=== PATIENT | female | born 1935 | race African-American/Black ===

== ENCOUNTER 2017-09-07 13:20 | Inpatient (IN) | payer OTHER ==
[~2017-09-07] VITALS: Ht 152.4 cm; Wt 73.9 kg
[2017-09-07] MEDS ORDERED: SODIUM CHLORIDE 0.9% 500 ML IV ONE ×2 (13:27→18:30)
[2017-09-07 14:47] LABS: Basophils # (auto) 0 uL; Basophils % (auto) 0.1 % (0.0-2.0); Eosinophils # (auto) 0.1 uL; Eosinophils % (auto) 0.8 % (0.0-7.0); Hematocrit 28.5 % (36.0-46.0); Hemoglobin 9.4 g/dL (12.2-16.2); Lymphocytes # (auto) 0.7 uL; Lymphocytes % (auto) 6.9 % (10.0-50.0); Mean Corpuscular Hemoglobin 31.3 pg (28.0-32.0); Mean Corpuscular Hgb Conc. 32.8 g/dL (32.0-36.0); Mean Corpuscular Volume 95.4 fL (80.0-100.0); Monocytes # (auto) 1.4 uL; Monocytes % (auto) 13.4 % (0.0-12.0); Neutrophils # (auto) 8.5 uL; Neutrophils % (auto) 78.8 % (37.0-80.0); Nucleated Red Blood Cells % 0.1 %; Platelet Count (auto) 267 10^3/uL (140-450); Red Blood Cells 2.99 10^6/uL (4.0-5.20); Red Cell Distribution Width 14.5 % (11.8-14.3); White Blood Cell 10.8 10^3/uL (4.4-10.8)
[2017-09-07 14:55] LABS: Urine Bacteria FEW /hpf (None Seen); Urine Blood Negative /uL (Negative); Urine Specific Gravity 1.015 (1.001-1.035); Urine WBC 5 /hpf (0 - 5)
[2017-09-07 15:03] LABS: Albumin 3.1 g/dL (3.4-5.0); BUN/Creatinine Ratio 27.5; Calcium 9.4 mg/dL (8.5-10.1); Magnesium 1.9 mg/dL (1.6-2.6); Potassium 4.3 mmol/L (3.5-5.1)
[2017-09-07 15:08] LABS: Bilirubin, Total 0.4 mg/dL (0.2-1.0); Total Protein 7.4 g/dL (6.4-8.2)
[2017-09-07 15:09] LABS: INR 0.93 (0.9-1.15); Partial Thromboplastin Time 22.2 sec (23.78-33.04)
[2017-09-07] MEDS ORDERED: NITROGLYCERIN 0.4 MG SL TAB SL PRN (15:45)
[2017-09-07] MEDS ORDERED: HYDROcodone-ACET 5/325MG TAB PO PRN (15:45)
[2017-09-07] MEDS ORDERED: cefTRIAXone 1GM/10ml IVPUSH 10 ML IV ONE (15:45)
[2017-09-07] MEDS ORDERED: PROMETHAZINE HCL 25 MG/ML 1ML IV PRN (15:45)
[2017-09-07] MEDS ORDERED: MORPHINE SULFATE 8mg/ml INJ SDV IV PRN ×2 (15:45)
[2017-09-07] MEDS ORDERED: TEMAZEPAM 15 MG CAP PO PRN (15:45)
[2017-09-07] MEDS ORDERED: LACTULOSE 20Gm/30ML SOLN PO PRN (15:45)
[2017-09-07] MEDS ORDERED: LORazepam 0.5 MG TAB PO PRN (15:45)
[2017-09-07] MEDS ORDERED: ENOXAPARIN SOD 30 MG/0.3 ML SYRINGE SC SCH (17:21)
[2017-09-07] MEDS ORDERED: POTASSIUM CHL 20 Meq TABLET PO ONE ×3 (17:30→20:00)
[2017-09-07] MEDS ORDERED: FUROSEMIDE 40 MG/4 ML VIAL IV ONE (17:30)
[2017-09-07] MEDS ORDERED: ASPirin 81 mg TAB PO ONE (17:30)
[2017-09-07] MEDS ORDERED: ENOXAPARIN SOD 60 MG/0.6 ML SYRINGE SC ONE (18:30)
[2017-09-07] MEDS ORDERED: ENOXAPARIN SOD 30 MG/0.3 ML SYRINGE SC ONE (19:45)
[2017-09-07 20:44] VITALS: BP 140/85
[2017-09-07] MEDS: SODIUM CHLORIDE 0.9% 1,000 ML IV SCH (20:44)
[2017-09-07] MEDS ORDERED: ENOXAPARIN SOD 60 MG/0.6 ML SYRINGE SC SCH (22:00)
[2017-09-07 22:16] VITALS: BP 148/85
[2017-09-07] MEDS: CARVEDILOL 3.125 MG TAB PO SCH (22:23)
[2017-09-07] MEDS: SODIUM CHLOR 0.9% PF (SALINE LOCK) 10ML VIAL/SYR IV SCH (22:24)
[2017-09-07 23:56] VITALS: BP 135/54
[2017-09-08] VITALS (10 sets, daily range): BP systolic 87–121; BP diastolic 48–83
[2017-09-08] MEDS: SODIUM CHLOR 0.9% PF (SALINE LOCK) 10ML VIAL/SYR IV SCH ×4 (05:39→22:08)
[2017-09-08 06:00] LABS: Basophils # (auto) 0.1 uL; Basophils % (auto) 0.6 % (0.0-2.0); Eosinophils # (auto) 0 uL; Eosinophils % (auto) 0.3 % (0.0-7.0); Hematocrit 28.9 % (36.0-46.0); Hemoglobin 9.3 g/dL (12.2-16.2); Lymphocytes # (auto) 1.1 uL; Lymphocytes % (auto) 7.3 % (10.0-50.0); Mean Corpuscular Hemoglobin 30.6 pg (28.0-32.0); Mean Corpuscular Hgb Conc. 32.2 g/dL (32.0-36.0); Monocytes # (auto) 1.7 uL; Monocytes % (auto) 11.5 % (0.0-12.0); Neutrophils # (auto) 12.1 uL; Neutrophils % (auto) 80.3 % (37.0-80.0); Nucleated Red Blood Cells % 0.1 %; Platelet Count (auto) 285 10^3/uL (140-450); Red Blood Cells 3.04 10^6/uL (4.0-5.20); Red Cell Distribution Width 14.8 % (11.8-14.3); White Blood Cell 15.1 10^3/uL (4.4-10.8)
[2017-09-08 06:42] LABS: Albumin 2.9 g/dL (3.4-5.0); BUN/Creatinine Ratio 24.7; Bilirubin, Total 0.5 mg/dL (0.2-1.0); Calcium 7.8 mg/dL (8.5-10.1); Potassium 4.4 mmol/L (3.5-5.1); Total Protein 7.2 g/dL (6.4-8.2)
[2017-09-08] MEDS ORDERED: FUROSEMIDE 40 MG/4 ML VIAL IV SCH (10:00)
[2017-09-08] MEDS ORDERED: POTASSIUM CHL 20 Meq TABLET PO SCH (10:00)
[2017-09-08] MEDS: PANTOPRAZOLE 40 MG TAB PO SCH (10:00)
[2017-09-08] MEDS: cefTRIAXone 1GM/10ml IVPUSH 10 ML IV SCH (10:23)
[2017-09-08] MEDS: ASPirin 81 mg TAB PO SCH (10:33)
[2017-09-08] MEDS: CARVEDILOL 3.125 MG TAB PO SCH ×2 (10:34→22:00)
[2017-09-08] MEDS: SODIUM CHLORIDE 0.9% 1,000 ML IV SCH (10:37)
[2017-09-08] MEDS: ENOXAPARIN SOD 60 MG/0.6 ML SYRINGE SC SCH (10:40)
[2017-09-08] MEDS ORDERED: SODIUM CHLORIDE 0.9% 1,000 ML IV SCH (14:45)
[2017-09-08] MEDS: LORazepam 0.5 MG TAB PO PRN (19:52)
[2017-09-08] MEDS ORDERED: SUCCINYLCHOLINE CHLORIDE 20 MG/ML 10ML VIAL IV ONE (21:02)
[2017-09-08] MEDS ORDERED: ETOMIDATE (2MG/ML) 20ML VIAL IV ONE (21:03)
[2017-09-08] MEDS ORDERED: MIDAZOLAM DRIP 50 mg/50mL 50 ML IV ONE (21:23)
[2017-09-08] MEDS: MIDAZOLAM DRIP 50 mg/50mL 50 ML IV SCH ×2 (22:07→22:10)
[2017-09-08] MEDS ORDERED: D5W/SOD CHL 0.45% 1,000 ML IV ONE (22:15)
[2017-09-09] VITALS (100 sets, daily range): BP systolic 66–153; BP diastolic 33–82
[2017-09-09 04:10] LABS: Basophils # (auto) 0 uL; Eosinophils # (auto) 0.3 uL; Hemoglobin 7.4 g/dL (12.2-16.2); Monocytes # (auto) 0.6 uL
[2017-09-09 04:12] LABS: Basophils % (auto) 0.2 % (0.0-2.0); Eosinophils % (auto) 3.2 % (0.0-7.0); Lymphocytes # (auto) 0.6 uL; Mean Corpuscular Hemoglobin 32.3 pg (28.0-32.0); Mean Corpuscular Hgb Conc. 33.6 g/dL (32.0-36.0); Mean Corpuscular Volume 96.3 fL (80.0-100.0); Monocytes % (auto) 5.7 % (0.0-12.0); Neutrophils # (auto) 8.6 uL; Neutrophils % (auto) 84.9 % (37.0-80.0); Nucleated Red Blood Cells % 0.3 %; Platelet Count (auto) 180 10^3/uL (140-450); Red Blood Cells 2.28 10^6/uL (4.0-5.20); Red Cell Distribution Width 15.2 % (11.8-14.3); White Blood Cell 10.1 10^3/uL (4.4-10.8)
[2017-09-09 04:23] LABS: INR 0.93 (0.9-1.15); Partial Thromboplastin Time 21.9 sec (23.78-33.04)
[2017-09-09 04:27] LABS: Calcium 8.3 mg/dL (8.5-10.1); Magnesium 1.8 mg/dL (1.6-2.6); Potassium 3.7 mmol/L (3.5-5.1)
[2017-09-09 04:29] LABS: BUN/Creatinine Ratio 25.3
[2017-09-09] MEDS: MIDAZOLAM DRIP 50 mg/50mL 50 ML IV SCH ×3 (05:22→21:00)
[2017-09-09] MEDS ORDERED: NOREPINEPHRINE 8 MG/250ML KIT 250 ML IV SCH (08:43)
[2017-09-09] MEDS ORDERED: AMIODARONE HCL 150 MG in D5W 5% 100 ML IV ONE (08:45)
[2017-09-09] MEDS ORDERED: AMIODARONE HCL 900 MG in DEXTROSE 500 ML IV SCH ×6 (08:50→09:00)
[2017-09-09] MEDS: cefTRIAXone 1GM/10ml IVPUSH 10 ML IV SCH (09:08)
[2017-09-09] MEDS ORDERED: FUROSEMIDE 40 MG/4 ML VIAL IV ONE (09:45)
[2017-09-09] MEDS: CARVEDILOL 3.125 MG TAB PO SCH ×2 (10:00→10:33)
[2017-09-09] MEDS: ACETAMINOPHEN 500 MG TAB PO PRN ×2 (10:00→11:10)
[2017-09-09] MEDS: ASPirin 81 mg TAB PO SCH (10:13)
[2017-09-09] MEDS: PANTOPRAZOLE 40 MG TAB PO SCH (10:14)
[2017-09-09] MEDS: ENOXAPARIN SOD 60 MG/0.6 ML SYRINGE SC SCH (10:14)
[2017-09-09] MEDS: NOREPINEPHRINE 8 MG/250ML KIT 250 ML IV SCH (10:30)
[2017-09-09] MEDS: ALBUTEROL SULF 2.5 MG/0.5ML(0.5%) NEB SOLN NEB PRN (12:01)
[2017-09-09] MEDS: IPRATROPIUM BROM 0.5 MG/2.5ML INH SOL NEB PRN (12:01)
[2017-09-09] MEDS ORDERED: AZITHROMYCIN 500MG/ 250ML 250 ML IV ONE (12:30)
[2017-09-09] MEDS ORDERED: LIDOCAINE 1% (LOCAL ANESTH.) PF 5ml SDV ID ONE (14:15)
[2017-09-09] MEDS: SODIUM CHLOR 0.9% PF (SALINE LOCK) 10ML VIAL/SYR IV SCH ×3 (14:24→22:00)
[2017-09-09] MEDS: AMIODARONE HCL 900 MG in DEXTROSE 500 ML IV SCH (15:00)
[2017-09-09] MEDS ORDERED: CATHFLO ACTIVASE (ALTEPLASE) 2 MG VIAL IV ONE ×3 (21:15)
[2017-09-09] MEDS ORDERED: STERILE WATER 10 ML ONE (22:16)
[2017-09-09] MEDS: LORazepam 0.5 MG TAB PO PRN (22:25)
[2017-09-10] VITALS (102 sets, daily range): BP systolic 75–170; BP diastolic 28–87
[2017-09-10 03:13] LABS: Albumin 2.1 g/dL (3.4-5.0); BUN/Creatinine Ratio 23.3; Calcium 8.4 mg/dL (8.5-10.1); Magnesium 1.7 mg/dL (1.6-2.6); Potassium 3.9 mmol/L (3.5-5.1)
[2017-09-10 03:16] LABS: Bilirubin, Total 0.3 mg/dL (0.2-1.0); Total Protein 6.9 g/dL (6.4-8.2)
[2017-09-10 03:20] LABS: Phosphorus 2.6 mg/dL (2.5-4.90)
[2017-09-10] MEDS: MIDAZOLAM DRIP 50 mg/50mL 50 ML IV SCH ×3 (03:30→20:00)
[2017-09-10 03:43] LABS: Basophils # (auto) 0.1 uL; Basophils % (auto) 0.4 % (0.0-2.0); Eosinophils % (auto) 4.5 % (0.0-7.0); Hematocrit 28.4 % (36.0-46.0); Lymphocytes # (auto) 1.2 uL; Lymphocytes % (auto) 5.2 % (10.0-50.0); Mean Corpuscular Hemoglobin 30.2 pg (28.0-32.0); Mean Corpuscular Hgb Conc. 31.6 g/dL (32.0-36.0); Mean Corpuscular Volume 95.6 fL (80.0-100.0); Monocytes # (auto) 1.4 uL; Monocytes % (auto) 5.9 % (0.0-12.0); Neutrophils # (auto) 19.3 uL; Nucleated Red Blood Cells % 0.2 %; Platelet Count (auto) 223 10^3/uL (140-450); Red Blood Cells 2.97 10^6/uL (4.0-5.20); Red Cell Distribution Width 15.4 % (11.8-14.3); White Blood Cell 22.9 10^3/uL (4.4-10.8)
[2017-09-10] MEDS: SODIUM CHLOR 0.9% PF (SALINE LOCK) 10ML VIAL/SYR IV SCH ×5 (06:15→22:20)
[2017-09-10] MEDS: NOREPINEPHRINE 8 MG/250ML KIT 250 ML IV SCH ×2 (06:45→09:00)
[2017-09-10] MEDS: CARVEDILOL 3.125 MG TAB PO SCH ×3 (10:00→22:20)
[2017-09-10] MEDS: AZITHROMYCIN 500MG/ 250ML 250 ML IV SCH (10:04)
[2017-09-10] MEDS: ENOXAPARIN SOD 60 MG/0.6 ML SYRINGE SC SCH (10:05)
[2017-09-10] MEDS: PANTOPRAZOLE 40 MG TAB PO SCH (10:06)
[2017-09-10] MEDS: ASPirin 81 mg TAB PO SCH (10:06)
[2017-09-10] MEDS: cefTRIAXone 1GM/10ml IVPUSH 10 ML IV SCH (10:06)
[2017-09-10] MEDS: AMIODARONE HCL 900 MG in DEXTROSE 500 ML IV SCH (14:00)
[2017-09-11] VITALS (102 sets, daily range): BP systolic 76–148; BP diastolic 35–86
[2017-09-11 04:13] LABS: Basophils # (auto) 0 uL; Hemoglobin 7.4 g/dL (12.2-16.2)
[2017-09-11 04:16] LABS: Basophils % (auto) 0.4 % (0.0-2.0); Eosinophils # (auto) 0.4 uL; Eosinophils % (auto) 3.4 % (0.0-7.0); Hematocrit 22.4 % (36.0-46.0); Lymphocytes # (auto) 0.3 uL; Lymphocytes % (auto) 2.6 % (10.0-50.0); Mean Corpuscular Hemoglobin 31.4 pg (28.0-32.0); Mean Corpuscular Hgb Conc. 33.1 g/dL (32.0-36.0); Mean Corpuscular Volume 94.6 fL (80.0-100.0); Monocytes % (auto) 7.6 % (0.0-12.0); Neutrophils # (auto) 11.3 uL; Nucleated Red Blood Cells % 0.2 %; Platelet Count (auto) 161 10^3/uL (140-450); Red Blood Cells 2.37 10^6/uL (4.0-5.20); Red Cell Distribution Width 15.3 % (11.8-14.3); White Blood Cell 13.1 10^3/uL (4.4-10.8)
[2017-09-11 04:17] LABS: INR 0.95 (0.9-1.15); Partial Thromboplastin Time 30.6 sec (23.78-33.04); Prothrombin Time 10.2 sec (9.27-12.13)
[2017-09-11 04:29] LABS: BUN/Creatinine Ratio 25.5; Calcium 7.8 mg/dL (8.5-10.1); Magnesium 1.5 mg/dL (1.6-2.6); Potassium 3.6 mmol/L (3.5-5.1)
[2017-09-11] MEDS: MIDAZOLAM DRIP 50 mg/50mL 50 ML IV SCH ×3 (04:45→17:19)
[2017-09-11] MEDS: SODIUM CHLOR 0.9% PF (SALINE LOCK) 10ML VIAL/SYR IV SCH ×5 (06:20→22:00)
[2017-09-11] MEDS: NOREPINEPHRINE 8 MG/250ML KIT 250 ML IV SCH (09:00)
[2017-09-11] MEDS: AZITHROMYCIN 500MG/ 250ML 250 ML IV SCH (09:49)
[2017-09-11] MEDS: cefTRIAXone 1GM/10ml IVPUSH 10 ML IV SCH (09:50)
[2017-09-11] MEDS: ASPirin 81 mg TAB PO SCH (09:51)
[2017-09-11] MEDS: PANTOPRAZOLE 40 MG TAB PO SCH (09:51)
[2017-09-11] MEDS: ENOXAPARIN SOD 60 MG/0.6 ML SYRINGE SC SCH (09:52)
[2017-09-11] MEDS: CARVEDILOL 3.125 MG TAB PO SCH ×2 (09:52→22:00)
[2017-09-11] MEDS: ALBUTEROL SULF 2.5 MG/0.5ML(0.5%) NEB SOLN NEB PRN ×2 (09:54→15:45)
[2017-09-11] MEDS: IPRATROPIUM BROM 0.5 MG/2.5ML INH SOL NEB PRN ×3 (09:55→21:59)
[2017-09-11] MEDS: AMIODARONE HCL 900 MG in DEXTROSE 500 ML IV SCH (15:00)
[2017-09-11] MEDS ORDERED: AMIODARONE HCL 200 MG TAB PO ONE (15:15)
[2017-09-11] MEDS: ACETAMINOPHEN 500 MG TAB PO PRN (17:07)
[2017-09-11] MEDS ORDERED: DIGOXIN (250MCG/ML) 2 ML AMPULE IV SCH (19:00)
[2017-09-11] MEDS ORDERED: DIGOXIN (250MCG/ML) 2 ML AMPULE IV ONE (19:00)
[2017-09-11] MEDS ORDERED: AMIODARONE HCL 900 MG IV ONE (19:56)
[2017-09-11 21:03] LABS: BUN/Creatinine Ratio 22.7; Magnesium 1.5 mg/dL (1.6-2.6); Potassium 3.8 mmol/L (3.5-5.1)
[2017-09-11] MEDS ORDERED: AMIODARONE HCL 200 MG TAB PO SCH (22:00)
[2017-09-12] VITALS (91 sets, daily range): BP systolic 79–152; BP diastolic 34–95
[2017-09-12] MEDS ORDERED: DIGOXIN (250MCG/ML) 2 ML AMPULE IV SCH (01:00)
[2017-09-12] MEDS ORDERED: DIGOXIN (250MCG/ML) 2 ML AMPULE ONE (02:19)
[2017-09-12 03:39] LABS: Hematocrit 24.7 % (36.0-46.0); Hemoglobin 8.1 g/dL (12.2-16.2); Lymphocytes # (auto) 0.6 uL; Red Blood Cells 2.62 10^6/uL (4.0-5.20)
[2017-09-12 03:43] LABS: Basophils # (auto) 0 uL; Basophils % (auto) 0.2 % (0.0-2.0); Eosinophils # (auto) 0.5 uL; Eosinophils % (auto) 2.9 % (0.0-7.0); Lymphocytes % (auto) 3.5 % (10.0-50.0); Mean Corpuscular Hemoglobin 30.7 pg (28.0-32.0); Mean Corpuscular Hgb Conc. 32.6 g/dL (32.0-36.0); Mean Corpuscular Volume 94.2 fL (80.0-100.0); Monocytes # (auto) 1.3 uL; Neutrophils % (auto) 86.4 % (37.0-80.0); Platelet Count (auto) 188 10^3/uL (140-450); Red Cell Distribution Width 14.8 % (11.8-14.3); White Blood Cell 18.5 10^3/uL (4.4-10.8)
[2017-09-12 03:58] LABS: BUN/Creatinine Ratio 21.6; Calcium 7.8 mg/dL (8.5-10.1); Potassium 3.8 mmol/L (3.5-5.1)
[2017-09-12] MEDS: fentaNYL Drip 2500mCg/250mlNS 250 ML IV SCH (04:18)
[2017-09-12] MEDS ORDERED: fentaNYL Drip 2500mCg/250mlNS 250 ML IV ONE (04:30)
[2017-09-12] MEDS: ALBUTEROL SULF 2.5 MG/0.5ML(0.5%) NEB SOLN NEB PRN ×3 (04:45→22:17)
[2017-09-12] MEDS: MAGNESIUM SULFATE 1GM/100ML 100 ML IV SCH ×2 (05:12→06:00)
[2017-09-12] MEDS: SODIUM CHLOR 0.9% PF (SALINE LOCK) 10ML VIAL/SYR IV SCH ×4 (06:00→22:40)
[2017-09-12] MEDS: NOREPINEPHRINE 8 MG/250ML KIT 250 ML IV SCH (09:00)
[2017-09-12] MEDS: MIDAZOLAM DRIP 50 mg/50mL 50 ML IV SCH ×3 (09:57→17:36)
[2017-09-12] MEDS: CARVEDILOL 3.125 MG TAB PO SCH ×2 (10:00→22:00)
[2017-09-12] MEDS: PANTOPRAZOLE 40 MG TAB PO SCH (10:00)
[2017-09-12] MEDS: ASPirin 81 mg TAB PO SCH (10:33)
[2017-09-12] MEDS: AZITHROMYCIN 500MG/ 250ML 250 ML IV SCH (10:33)
[2017-09-12] MEDS: cefTRIAXone 1GM/10ml IVPUSH 10 ML IV SCH (10:33)
[2017-09-12] MEDS: ENOXAPARIN SOD 60 MG/0.6 ML SYRINGE SC SCH (10:34)
[2017-09-12] MEDS ORDERED: AMIODARONE HCL 200 MG TAB PO ONE (12:15)
[2017-09-12] MEDS ORDERED: MEROPENEM 500mg/10ml IVPUSH 10 ML IV SCH (12:45)
[2017-09-12] MEDS: PROPOFOL 100 ML IV SCH (16:23)
[2017-09-12] MEDS: IPRATROPIUM BROM 0.5 MG/2.5ML INH SOL NEB PRN ×2 (18:54→22:17)
[2017-09-12] MEDS: ACETAMINOPHEN 500 MG TAB PO PRN (20:30)
[2017-09-12] MEDS: AMIODARONE HCL 200 MG TAB PO SCH (22:40)
[2017-09-12] MEDS: MEROPENEM 1gm/20ml IVPUSH 20 ML IV SCH (22:40)
[2017-09-13] VITALS (102 sets, daily range): BP systolic 70–158; BP diastolic 33–79
[2017-09-13 03:58] LABS: Hemoglobin 8.3 g/dL (12.2-16.2)
[2017-09-13 04:02] LABS: Hematocrit 26.1 % (36.0-46.0); Mean Corpuscular Hemoglobin 30.8 pg (28.0-32.0); Mean Corpuscular Volume 96.5 fL (80.0-100.0); Platelet Count (auto) 179 10^3/uL (140-450); Red Cell Distribution Width 15.6 % (11.8-14.3); White Blood Cell 22.7 10^3/uL (4.4-10.8)
[2017-09-13 04:17] LABS: BUN/Creatinine Ratio 17.1; Calcium 7.9 mg/dL (8.5-10.1); Magnesium 2.5 mg/dL (1.6-2.6); Potassium 3.8 mmol/L (3.5-5.1)
[2017-09-13 04:21] LABS: Basophils % (manual) 0 (0.0-2.0); Blast Cells 0; Metamyelocytes % 0; Myelocytes % 0; Promyelocytes % 0; Reactive Lymphocytes 0
[2017-09-13 04:57] LABS: Band Neutrophils % (manual) 17; Eosinophils % (manual) 6 (0-7); Lymphocytes % (manual) 6 (10.0-50.0); Monocytes % (manual) 7 (0-12)
[2017-09-13] MEDS: ALBUTEROL SULF 2.5 MG/0.5ML(0.5%) NEB SOLN NEB PRN ×4 (06:40→15:02)
[2017-09-13] MEDS: IPRATROPIUM BROM 0.5 MG/2.5ML INH SOL NEB PRN ×4 (06:40→15:02)
[2017-09-13] MEDS: PANTOPRAZOLE 40 MG TAB PO SCH (10:06)
[2017-09-13] MEDS: AMIODARONE HCL 200 MG TAB PO SCH ×2 (10:06→22:09)
[2017-09-13] MEDS: AZITHROMYCIN 500MG/ 250ML 250 ML IV SCH (10:06)
[2017-09-13] MEDS: MIDAZOLAM DRIP 50 mg/50mL 50 ML IV SCH (11:00)
[2017-09-13] MEDS: CARVEDILOL 3.125 MG TAB PO SCH ×2 (11:28→22:00)
[2017-09-13] MEDS ORDERED: SODIUM CHLORIDE 0.9% 1,000 ML IV SCH (12:00)
[2017-09-13] MEDS: PROPOFOL 100 ML IV SCH (12:30)
[2017-09-13] MEDS: MEROPENEM 1gm/20ml IVPUSH 20 ML IV SCH ×2 (12:48→22:09)
[2017-09-13] MEDS: SODIUM CHLOR 0.9% PF (SALINE LOCK) 10ML VIAL/SYR IV SCH ×2 (12:48→22:09)
[2017-09-13] MEDS ORDERED: SODIUM CHLORIDE 0.9% 2,200 ML IV ONE (15:15)
[2017-09-13] MEDS ORDERED: SODIUM CHLORIDE 0.9% 500 ML IV ONE ×2 (15:30→19:00)
[2017-09-13] MEDS: NOREPINEPHRINE 8 MG/250ML KIT 250 ML IV SCH (16:39)
[2017-09-13] MEDS: ENOXAPARIN SOD 60 MG/0.6 ML SYRINGE SC SCH (17:17)
[2017-09-13] MEDS: ASPirin 81 mg TAB PO SCH (17:17)
[2017-09-13] MEDS: SODIUM CHLORIDE 0.9% 1,000 ML IV SCH (18:24)
[2017-09-13] MEDS: fentaNYL Drip 2500mCg/250mlNS 250 ML IV SCH (19:41)
[2017-09-14] VITALS (97 sets, daily range): BP systolic 98–170; BP diastolic 39–79
[2017-09-14] MEDS: ALBUTEROL SULF 2.5 MG/0.5ML(0.5%) NEB SOLN NEB PRN ×3 (00:52→14:25)
[2017-09-14] MEDS: IPRATROPIUM BROM 0.5 MG/2.5ML INH SOL NEB PRN ×3 (00:52→14:25)
[2017-09-14] MEDS: PROPOFOL 100 ML IV SCH (01:15)
[2017-09-14] MEDS: MIDAZOLAM DRIP 50 mg/50mL 50 ML IV SCH ×3 (01:15→21:29)
[2017-09-14] MEDS: NOREPINEPHRINE 8 MG/250ML KIT 250 ML IV SCH (02:12)
[2017-09-14 03:48] LABS: Basophils # (auto) 0 uL; Basophils % (auto) 0.2 % (0.0-2.0); Eosinophils # (auto) 0.6 uL; Hematocrit 24.2 % (36.0-46.0)
[2017-09-14 03:50] LABS: Eosinophils % (auto) 4.2 % (0.0-7.0); Hemoglobin 7.8 g/dL (12.2-16.2); Lymphocytes # (auto) 0.7 uL; Lymphocytes % (auto) 4.4 % (10.0-50.0); Mean Corpuscular Hemoglobin 30.5 pg (28.0-32.0); Mean Corpuscular Hgb Conc. 32.1 g/dL (32.0-36.0); Monocytes # (auto) 0.9 uL; Monocytes % (auto) 5.7 % (0.0-12.0); Neutrophils # (auto) 13.4 uL; Neutrophils % (auto) 85.5 % (37.0-80.0); Nucleated Red Blood Cells % 0.1 %; Platelet Count (auto) 179 10^3/uL (140-450); Red Blood Cells 2.54 10^6/uL (4.0-5.20); Red Cell Distribution Width 15.1 % (11.8-14.3); White Blood Cell 15.6 10^3/uL (4.4-10.8)
[2017-09-14] MEDS: SODIUM CHLORIDE 0.9% 1,000 ML IV SCH ×4 (04:00→23:42)
[2017-09-14 04:13] LABS: BUN/Creatinine Ratio 19.3; Calcium 7.8 mg/dL (8.5-10.1); Potassium 3.7 mmol/L (3.5-5.1)
[2017-09-14] MEDS: fentaNYL Drip 2500mCg/250mlNS 250 ML IV SCH (04:18)
[2017-09-14] MEDS: AMIODARONE HCL 200 MG TAB PO SCH ×2 (10:00→22:00)
[2017-09-14] MEDS: ASPirin 81 mg TAB PO SCH (10:00)
[2017-09-14] MEDS: SODIUM CHLOR 0.9% PF (SALINE LOCK) 10ML VIAL/SYR IV SCH ×2 (10:00→21:33)
[2017-09-14] MEDS: MEROPENEM 1gm/20ml IVPUSH 20 ML IV SCH ×2 (11:00→21:33)
[2017-09-14] MEDS: PANTOPRAZOLE 40 MG TAB PO SCH (12:15)
[2017-09-14] MEDS: ACETAMINOPHEN 500 MG TAB PO PRN (12:15)
[2017-09-14] MEDS: CARVEDILOL 3.125 MG TAB PO SCH ×2 (12:16→22:00)
[2017-09-14] MEDS: ENOXAPARIN SOD 60 MG/0.6 ML SYRINGE SC SCH (12:17)
[2017-09-15] VITALS (113 sets, daily range): BP systolic 83–152; BP diastolic 39–74
[2017-09-15] MEDS: NOREPINEPHRINE 8 MG/250ML KIT 250 ML IV SCH (02:18)
[2017-09-15 04:03] LABS: Mean Corpuscular Hemoglobin 31.4 pg (28.0-32.0); Red Blood Cells 2.19 10^6/uL (4.0-5.20); Red Cell Distribution Width 15.1 % (11.8-14.3); White Blood Cell 10.5 10^3/uL (4.4-10.8)
[2017-09-15 04:05] LABS: Hematocrit 20.4 % (36.0-46.0); Mean Corpuscular Hgb Conc. 33.7 g/dL (32.0-36.0); Mean Corpuscular Volume 93.2 fL (80.0-100.0); Platelet Count (auto) 184 10^3/uL (140-450)
[2017-09-15 04:20] LABS: BUN/Creatinine Ratio 20.8; Magnesium 2.1 mg/dL (1.6-2.6); Potassium 3.6 mmol/L (3.5-5.1)
[2017-09-15 04:31] LABS: Hemoglobin 6.9 g/dL (12.2-16.2)
[2017-09-15 04:32] LABS: Basophils % (manual) 0 (0.0-2.0); Blast Cells 0; Promyelocytes % 0; Reactive Lymphocytes 0
[2017-09-15] MEDS: fentaNYL Drip 2500mCg/250mlNS 250 ML IV SCH (05:06)
[2017-09-15] MEDS: MIDAZOLAM DRIP 50 mg/50mL 50 ML IV SCH (05:06)
[2017-09-15] MEDS: ALBUTEROL SULF 2.5 MG/0.5ML(0.5%) NEB SOLN NEB PRN (06:23)
[2017-09-15] MEDS: IPRATROPIUM BROM 0.5 MG/2.5ML INH SOL NEB PRN (06:23)
[2017-09-15 08:20] LABS: Eosinophils % (manual) 1 (0-7); Lymphocytes % (manual) 5 (10.0-50.0); Monocytes % (manual) 4 (0-12)
[2017-09-15 08:21] LABS: Band Neutrophils % (manual) 10; Metamyelocytes % 0; Myelocytes % 0
[2017-09-15] MEDS: AMIODARONE HCL 200 MG TAB PO SCH ×2 (09:32→21:32)
[2017-09-15] MEDS: ASPirin 81 mg TAB PO SCH (09:32)
[2017-09-15] MEDS: ENOXAPARIN SOD 60 MG/0.6 ML SYRINGE SC SCH (09:32)
[2017-09-15] MEDS: MEROPENEM 1gm/20ml IVPUSH 20 ML IV SCH ×2 (09:33→21:32)
[2017-09-15] MEDS: CARVEDILOL 3.125 MG TAB PO SCH ×2 (09:34→21:32)
[2017-09-15] MEDS: SODIUM CHLOR 0.9% PF (SALINE LOCK) 10ML VIAL/SYR IV SCH ×2 (09:34→21:32)
[2017-09-15] MEDS: PANTOPRAZOLE 40 MG/10 ML VIAL IV SCH (09:38)
[2017-09-15] MEDS: PROPOFOL 100 ML IV SCH (12:20)
[2017-09-15] MEDS: SODIUM CHLORIDE 0.9% 1,000 ML IV SCH (14:28)
[2017-09-16] VITALS (70 sets, daily range): BP systolic 89–150; BP diastolic 39–67
[2017-09-16] MEDS: fentaNYL Drip 2500mCg/250mlNS 250 ML IV SCH (01:06)
[2017-09-16 04:06] LABS: Hematocrit 26.5 % (36.0-46.0); Hemoglobin 8.8 g/dL (12.2-16.2); Mean Corpuscular Hemoglobin 30.7 pg (28.0-32.0); Mean Corpuscular Hgb Conc. 33.2 g/dL (32.0-36.0); Mean Corpuscular Volume 92.5 fL (80.0-100.0); Platelet Count (auto) 215 10^3/uL (140-450); Red Blood Cells 2.87 10^6/uL (4.0-5.20); Red Cell Distribution Width 14.8 % (11.8-14.3); White Blood Cell 12.8 10^3/uL (4.4-10.8)
[2017-09-16 04:13] LABS: Basophils % (manual) 0 (0.0-2.0); Blast Cells 0; Metamyelocytes % 0; Myelocytes % 0; Promyelocytes % 0; Reactive Lymphocytes 0
[2017-09-16 04:22] LABS: INR 0.89 (0.9-1.15); Partial Thromboplastin Time 33.2 sec (23.78-33.04); Prothrombin Time 9.6 sec (9.27-12.13)
[2017-09-16 04:32] LABS: Albumin 1.6 g/dL (3.4-5.0); BUN/Creatinine Ratio 23.9; Bilirubin, Total 0.5 mg/dL (0.2-1.0); Magnesium 2.3 mg/dL (1.6-2.6); Potassium 3.5 mmol/L (3.5-5.1); Total Protein 5.8 g/dL (6.4-8.2)
[2017-09-16 06:08] LABS: Band Neutrophils % (manual) 3; Eosinophils % (manual) 1 (0-7); Lymphocytes % (manual) 7 (10.0-50.0); Monocytes % (manual) 4 (0-12)
[2017-09-16] MEDS: NOREPINEPHRINE 8 MG/250ML KIT 250 ML IV SCH (09:00)
[2017-09-16] MEDS: SODIUM CHLOR 0.9% PF (SALINE LOCK) 10ML VIAL/SYR IV SCH (10:00)
[2017-09-16] MEDS ORDERED: POTASSIUM CHL 20MEQ/100ML 100 ML IV ONE (10:00)
[2017-09-16] MEDS: CARVEDILOL 3.125 MG TAB PO SCH (11:11)
[2017-09-16] MEDS: SODIUM CHLORIDE 0.9% 1,000 ML IV SCH (11:11)
[2017-09-16] MEDS: PANTOPRAZOLE 40 MG/10 ML VIAL IV SCH (11:18)
[2017-09-16] MEDS: ASPirin 81 mg TAB PO SCH (11:19)
[2017-09-16] MEDS: AMIODARONE HCL 200 MG TAB PO SCH (11:19)
[2017-09-16] MEDS: ENOXAPARIN SOD 60 MG/0.6 ML SYRINGE SC SCH (11:19)
[2017-09-16] MEDS: MEROPENEM 1gm/20ml IVPUSH 20 ML IV SCH (11:29)
[2017-09-16] MEDS: PROPOFOL 100 ML IV SCH (11:31)
== END 2017-09-16 20:00 | disposition short-term general hospital (02) | DRG 870 ==
LOC: ER 13:23 → TELE 13:24 → TELE-WESTW 20:13 → ICU WEST 09-08 21:35
PROVIDERS: ADMIT Internal Medicine; ATTEND Internal Medicine Geriatric Medicine
PROC: 5A1955Z Respiratory Ventilation, Greater than 96 Consecutive Hours (ICD-10-PCS; principal; 2017-09-08)
PROC: 0BH17EZ Insertion of Endotracheal Airway into Trachea, Via Natural or Artificial Opening (ICD-10-PCS; 2017-09-08)
PROC: 02HV33Z Insertion of Infusion Device into Superior Vena Cava, Percutaneous Approach (ICD-10-PCS; 2017-09-08)
PROC: 5A09357 Assistance with Respiratory Ventilation, Less than 24 Consecutive Hours, Continuous Positive Airway Pressure (ICD-10-PCS; 2017-09-08)
PROC: 02H633Z Insertion of Infusion Device into Right Atrium, Percutaneous Approach (ICD-10-PCS; 2017-09-09)
PROC: 30233N1 Transfusion of Nonautologous Red Blood Cells into Peripheral Vein, Percutaneous Approach (ICD-10-PCS; 2017-09-15)
DX: A41.9 Sepsis, unspecified organism (principal); J96.21 Acute and chronic respiratory failure with hypoxia; R65.21 Severe sepsis with septic shock; I13.0 Hypertensive heart and chronic kidney disease with heart failure and stage 1 through stage 4 chronic kidney disease, or unspecified chronic kidney disease; J44.0 Chronic obstructive pulmonary disease with (acute) lower respiratory infection; J15.0 Pneumonia due to Klebsiella pneumoniae; N17.9 Acute kidney failure, unspecified; I50.9 Heart failure, unspecified; I82.411 Acute embolism and thrombosis of right femoral vein; I48.91 Unspecified atrial fibrillation; N39.0 Urinary tract infection, site not specified; I69.354 Hemiplegia and hemiparesis following cerebral infarction affecting left non-dominant side; D63.1 Anemia in chronic kidney disease; D86.9 Sarcoidosis, unspecified; N18.3 Chronic kidney disease, stage 3 (moderate); I25.10 Atherosclerotic heart disease of native coronary artery without angina pectoris; I25.2 Old myocardial infarction; Z82.49 Family history of ischemic heart disease and other diseases of the circulatory system; Z90.49 Acquired absence of other specified parts of digestive tract; Z79.899 Other long term (current) drug therapy; Z79.82 Long term (current) use of aspirin
CPT/HCPCS: 36415; 36569; 36600; 70450; 71045; 80048; 80053; 80061; 81001; 82550; 82805; 83735; 83880; 84100; 84443; 84484; 85007; 85025; 85027; 85379; 85610; 85652; 85730; 86850; 86900; 86901; 86920; 87070; 87077; 87086; 87186; 87205; 93005; 93306; 93970; 94002; 94003; 94640; 94660; 94761; 96361; 96374; 96375; 96379; C9113; J0330; J2250; J2704; J3480; J7060